=== PATIENT | female | born 1995 | race Caucasian/White ===

== ENCOUNTER 2016-11-29 16:18 | Emergency (ER) | payer OTHER ==
[2016-11-29 16:25] VITALS: BP 114/72; PULSE 62; TEMP 98.5; BMI 19.7
--- NOTE | 2016-11-29 16:26 | PDOC ---
History of Present Illness - General History Source: Patient Exam Limitations: No Limitations <Luna Cee - Last Filed: 11/29/16 16:39> - General History Source: Patient Exam Limitations: No Limitations - History of Present Illness Initial Comments: 11/29/16 16:48 The patient is 21 a year old female, with a significant past medical history of cold sores, who presents to the emergency department requesting a prescription refill of Valtrex. The patient reports that she gets cold sores very frequently and they are brought on by stress, anxiety, and the sun. She states that she is going to [place] tomorrow for spring break for a week with friends and is concerned that she is going to break out in cold sores from the sun. Her mine technician's office is closed on the weekends and suggested that she come into the ED for the refill. Allergies: Aspirin Medications:The patient reports that she takes Lysine Pills for her skin and Control pills Social history: Never smoked, reports social alcohol use Past Surgical History: Tonsillectomy, [place] [facility] PCP: Dr. Gil Rodriguez <Daisy Calvillo - Last Filed: 11/29/16 16:50> - General Chief Complaint: RX Refill Stated Complaint: REQUESTING RX Time Seen by Provider: 11/29/16 16:19 Past History - Past Medical History CVA: No CHF: No Dementia: No Liver Disease: No - Immunization History Td Vaccination: Yes Immunization Up to Date: Yes - Psycho/Social/Smoking Cessation Hx Anxiety: No Suicidal Ideation: No Smoking Status: No Smoking History: Never smoked Have you smoked in the past 12 months: No Number of Cigarettes Smoked Daily: 0 Hx Alcohol Use: Yes (SOCIAL) Drug/Substance Use Hx: No Substance Use Type: None Hx Substance Use Treatment: No <Luna Cee - Last Filed: 11/29/16 16:39> <Daisy Calvillo - Last Filed: 11/29/16 16:50> - Past Medical History Allergies/Adverse Reactions: Allergies Allergy/AdvReac Type Severity Reaction Status Date / Time aspirin Allergy Rash Verified 04/25/15 22:26 Home Medications: Ambulatory Orders Valacyclovir HCl [Valtrex -] 500 mg PO BID PRN #20 tablet 11/29/16 Review of Systems - Review of Systems Able to Perform ROS?: Yes Comments:: 11/29/16 16:49 CONSTITUTIONAL: Absent: fever, no chills, no fatigue SKIN: Absent: rash <Daisy Calvillo - Last Filed: 11/29/16 16:50> *Physical Exam - Vital Signs Last Vital Signs Temp Pulse Resp BP Pulse Ox 98.5 F 62 15 114/72 100 11/29/16 16:19 11/29/16 16:19 11/29/16 16:19 11/29/16 16:19 11/29/16 16:19 <Luna Cee - Last Filed: 11/29/16 16:39> - Vital Signs Last Vital Signs Temp Pulse Resp BP Pulse Ox 98.5 F 62 15 114/72 100 11/29/16 16:19 11/29/16 16:19 11/29/16 16:19 11/29/16 16:19 11/29/16 16:19 - Physical Exam Comments: 11/29/16 16:49 GENERAL: The patient is in no acute distress. SKIN: Warm, Dry, normal turgor, no rashes or lesions noted. <Daisy Calvillo - Last Filed: 11/29/16 16:50> Medical Decision Making - Medical Decision Making 11/29/16 16:26 A portion of this note was documented by scribe services under my direction. I have reviewed the details of the note, within reason, and agree with the documentation with the following case summary and management plan written by me. Nursing documentation reviewed and incorporated into medical decision making 11/29/16 16:33 Анна presents to the ER requesting a refil of her Valtrex She has recurrent Oral Herpetic outbreaks She was seen by her Metal Drill Operator who prescribed Valtrex to be taken during outbreaks PT could not get in touch with him and was asked to come to the ER Pt has no outbreak now She is fearful that she will get an outbreak since she is stressed, and will be exposed to the sun I have called her pharmacy to confirm dosing Will discharge to home with prescription <Luna Cee - Last Filed: 11/29/16 16:39> *DC/Admit/Observation/Transfer - Discharge Dispostion Admit: No <Luna Cee - Last Filed: 11/29/16 16:39> - Attestations Scribe Attestion: 11/29/16 16:50 Documentation prepared by RUDDY Dawson, acting as medical laboratory technician for Luna Cee MD <Daisy Calvillo - Last Filed: 11/29/16 16:50> Diagnosis at time of Disposition: Oral herpes simplex, not currently active - Discharge Dispostion Disposition: HOME Condition at time of disposition: Good - Prescriptions Prescriptions: Valacyclovir HCl [Valtrex -] 500 mg PO BID PRN #20 tablet PRN Reason: Outbreak - Referrals Referrals: Gli Rodriguez [Primary Care Provider] - - Patient Instructions Printed Discharge Instructions: DI for Cold Sores Additional Instructions: Анна Thanks for coming in to the ER today! you must follow up with your primary care physician for re evaluation please limit intake of alcohol while on this medication Enjoy your trip
== END 2016-11-29 16:43 | disposition home or self-care (01) ==
LOC: FER 16:18
DX: B00.1 Herpesviral vesicular dermatitis (principal)
CPT/HCPCS: 99281-25